=== PATIENT | female | born 1985 | race Caucasian/White ===

== ENCOUNTER 2019-03-20 09:23 | Inpatient (IN) | payer OTHER ==
[~2019-03-20] VITALS: Ht 157.5 cm; Wt 101.2 kg
[2019-03-20] MEDS ORDERED: morphine 4 MG/ML VIAL IV STA (09:59)
[2019-03-20] MEDS ORDERED: ONDANSETRON 4 MG INJ IV STA ×2 (09:59→12:40)
[2019-03-20] MEDS ORDERED: SOD CHLORIDE 0.9% 1,000 ML IV STA (09:59)
[2019-03-20] MEDS ORDERED: ACETAMINOPHEN 325 MG TAB PO PRN ×2 (12:30→15:00)
[2019-03-20] MEDS ORDERED: ONDANSETRON 4 MG INJ IV PRN (12:30)
[2019-03-20] MEDS ORDERED: HYDROmorphONE 1 MG/ML SYG IV STA (12:40)
--- NOTE | 2019-03-20 13:39 | ERD ---
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 The patient indicates for the past 48 hours the patient's been having a severe headache. She states that it is a bandlike headache. She was seen yesterday by her neur osurgeon Dr. Freeman. The patient was instructed to come to the emergency department for further evaluation as there was malfunctioning of the shunt. She had no fevers or shaking no chills. She denies any changes in vision. She is felt nauseous but has not experienced any emesis. She states the headache is 10 out of 10 in intensity. She also states she suffers from migraines but indicates this headache is different in nature from her previous migraine headaches. However she states this is not the worst headache of her life. She denies any neck pain. ROS All systems reviewed and are negative except as per history of present illness. Medications Home Meds No Active Prescriptions or Reported Meds Allergies Allergies: Coded Allergies: No Known Allergy (Unverified , 03/20/19) PMhx/Soc History of Surgery: Yes (HYSTERECTOMY, CLINICAL COUNSELOR SHUNT PLACEMENT) Hx Alcohol Use: No Hx Substance Use: No Hx Tobacco Use: No Smoking Status: Never smoker Physical Exam Vitals Vital Signs Date Temp Pulse Resp B/P (MAP) Pulse Ox O2 O2 Flow FiO2 Time Delivery Rate 03/20/19 90 18 123/79 98 Room Air 12:28 (94) 03/20/19 97.8 90 16 147/92 98 09:27 (110) Physical Exam Constitutional:Well-developed. Well-nourished. HEENT:Normocephalic. Atraumatic.Pupils were equal round reactive to light. Moist mucous membranes.No tonsillar exudates. Funduscopy exam shows sharp optic disks and venous pulsations are present with no papilledema. CLINICAL COUNSELOR shunt was palpable over the right parieto-occipital region. Neck: No nuchal rigidity. No lymphadenopathy. No posterior cervical spine tenderness or step-offs. Respiratory: Not using accessory muscles of respiration.Lungs were clear to auscultation bilaterally. No rhonchi. No rales. No wheezing. Cardiovascular: Regular rate regular rhythm.No murmurs. No rubs were appreciated.S1, S2 normal. Distal pulses are palpable 2+ bilaterally. GI: Abdomen was soft. Nontender. Non Distended. No pulsatile abdominal masses or bruits. No rebound. No guarding. Bowel sounds were present and normal. Muscle skeletal: Full range of motion of both the upper and lower extremities bilaterally.Normal muscle tone.No assymetrical calf tenderness or swelling. Skin: No petechia, no purpura. No lesions on the palms or the soles of the feet. No maculopapular rash. NEURO: Patient was alert, awake, orientated x3.No facial droop. Gait observed and normal with no ataxia.Speech had regular rate and rhythm. No focal neurological deficits. Result Diagram: 03/20/19 1005 03/20/19 1005 Results 24 hrs Laboratory Tests Test 03/20/19 10:05 White Blood Count 7.6 10^3/ul Red Blood Count 4.99 10^6/ul Hemoglobin 12.6 g/dl Hematocrit 40.2 % Mean Corpuscular Volume 80.6 fl Mean Corpuscular Hemoglobin 25.3 pg Mean Corpuscular Hemoglobin Concent 31.3 g/dl Red Cell Distribution Width 13.3 % Platelet Count 291 10^3/UL Mean Platelet Volume 9.5 fl Immature Granulocytes % 0.400 % Neutrophils % 71.2 % Lymphocytes % 19.1 % Monocytes % 6.0 % Eosinophils % 2.5 % Basophils % 0.8 % Nucleated Red Blood Cells % 0.0 /100WBC Immature Granulocytes # 0.030 10^3/ul Neutrophils # 5.4 10^3/ul Lymphocytes # 1.5 10^3/ul Monocytes # 0.5 10^3/ul Eosinophils # 0.2 10^3/ul Basophils # 0.1 10^3/ul Nucleated Red Blood Cells # 0.0 10^3/ul Prothrombin Time 12.8 Sec Prothrombin Time Ratio 1.0 INR International Normalized Ratio 0.95 Activated Partial Thromboplast Time 31.7 Sec Sodium Level 144 mmol/L Potassium Level 3.6 mmol/L Chloride Level 106 mmol/L Carbon Dioxide Level 25 mmol/L Anion Gap 13 Blood Urea Nitrogen 15 mg/dl Creatinine 0.71 mg/dl Est Glomerular Filtrat Rate mL/min > 60 mL/min Glucose Level 138 mg/dl Calcium Level 9.0 mg/dl Total Bilirubin 0.6 mg/dl Direct Bilirubin 0.00 mg/dl Indirect Bilirubin 0.6 mg/dl Aspartate Amino Transf (AST/SGOT) 23 IU/L Alanine Aminotransferase (ALT/SGPT) 18 IU/L Alkaline Phosphatase 91 IU/L Total Protein 7.5 g/dl Albumin 4.5 g/dl Globulin 3.00 g/dl Albumin/Globulin Ratio 1.50 Current Medications Medications Dose Sig/Negrita Start Time Status Last (Trade) Ordered Route PRN Stop Time Admin Dose Reason Admin Sodium 1,000 ml @ Q1H STAT 03/20/19 DC 03/20/19 Chloride 1,000 mls/hr IV 09:59 10:16 03/20/19 10:58 Morphine 4 mg ONCE STAT 03/20/19 DC 03/20/19 Sulfate IV 09:59 10:17 (morphine) 03/20/19 10:00 Ondansetron 4 mg ONCE STAT 03/20/19 DC 03/20/19 HCl (Zofran IV 09:59 10:17 Inj) 03/20/19 10:00 Ondansetron 4 mg BRIDGE ORDER 03/20/19 HCl (Zofran PRN IV 12:30 Inj) NAUSEA/VOMITI 03/21/19 12:29 NG 650 mg ER BRIDGE 03/20/19 Acetaminophen PRN PO 12:30 (Tylenol .MILD PAIN 03/21/19 12:29 Tab) 1-3 OR TEMP 1 mg ONCE STAT 03/20/19 DC 03/20/19 Hydromorphone IV 12:40 12:53 HCl 03/20/19 12:41 (Dilaudid) Ondansetron 4 mg ONCE STAT 03/20/19 DC 03/20/19 HCl (Zofran IV 12:40 12:52 Inj) 03/20/19 12:41 Procedures/MDM The patient presented to the emergency department with an acute single headache that presented within hours of onset my differential diagnosis included but was not limited to meningitis, SAH, intracerebral hemorrhage, hypertensive encephalopathy, cranial artery dissection, cerebral venous sinus thrombosis, traumatic, acute sinusitis. The patient has no ocular symptoms to suggest temporal neuritis, acute narrow-angle glaucoma or pituitary apoplexy. The patient did not appear to have a toxic or metabolic etiology such as fever, hypoglycemia, high-altitude disease or carbon monoxide poisoning. Given that the patient has a history of a shunt I did obtain a CT scan. This was reviewed by the radiologist and indicate the followin. No acute intracranial pathology identified. 2. Right transparietal ventricular shunt in place, without hydrocephalus. Small/slit-like lateral - third ventricles noted. The patient no severe electrolyte abnormalities. There is no leukocytosis or signs of infectious process. I spoke with her neurosurgeon who requested the patient be admitted to the hospitalist. He will be consulted on the case for further evaluation into malfunction of the patient's CLINICAL COUNSELOR shunt. Departure Diagnosis: Primary Impression: Obstructed CLINICAL COUNSELOR shunt Encounter type: initial encounter Qualified Codes: T85.09XA - Other m echanical complication of ventricular intracranial (communicating) shunt, initial encounter Condition: Serious YOSI SERRANO MD Mar 20, 2019 13:39
--- NOTE | 2019-03-20 14:54 | HP ---
Date/Time of Note Date/Time of Note DATE: 03/20/19 TIME: 14:37 Assessment/Plan VTE Prophylaxis SCD applied (from Nsg): Yes Pharmacological prophylaxis: NA/contraindicated Pharm contraindication: low risk/ambulating Lines/Catheters IV Catheter Type (from Nrsg): Saline Lock Assessment/Plan Assessment/Plan 33 yo woman with history of hydrocephalus presents with acute onset headache #Headache - May be HOGSHEAD MAT ASSEMBLER shunt malfunction with increased intracranial pressure - No concerning focal neuro signs - No red flags on CT head. - IV opioid analgesics until Dr. Freeman evaluates her. #Hydrocephalus - Probably idiopathic intracranial hypertension - s/p HOGSHEAD MAT ASSEMBLER shunt, outpatient followup with Dr. Freeman. DVT: SCDs GI: None Result Diagram: 03/20/19 1005 03/20/19 1005 HPI/ROS Admit Date/Time Admit Date/Time 20 March 2019 Hx of Present Illness Ms. Norman is a 33 yo woman with history of hydrocephalus with HOGSHEAD MAT ASSEMBLER shunt who presents with severe headache. She was in her usual state of health until Tuesday night, when she noticed an aching diffuse headache. But she was able to sleep through it. Tuesday morning the headache was much more severe. She had nausea but no vomiting; no vision changes or dizziness. She saw her neurosurgeon Dr. Fremean in his office who recommended she present to the emergency room for admission. She reports that in 2013 she had a lumbar puncture and was diagnosed with hydrocephalus (possibly IIH/pseudotumor cerebri?). She was managed medically until February 2017 when she had a HOGSHEAD MAT ASSEMBLER shunt placed by Dr. Freeman. She has had interm ittent problems with the shunt requiring revisions, she cannot remember the last time this happened. In the ED she was afebrile, vitals normal. Labs unremarkable. CT head showed the R ventricular shunt in position with no hydrocephalus. She got IV morphine and dilaudid with relief of pain. ROS She denies recent fever, chills, night sweats, weight loss, anorexia, vision christelle nges, dizziness, vertigo, sore throat, dysphagia, cough, dyspnea, chest pain/pressure/palpitations, vomiting, abdominal pain/distension, diarrhea, constipation, dysuria, urinary frequency, hematuria. PMH/Family/Social Past Medical History Hydrocephalus requiring HOGSHEAD MAT ASSEMBLER shunt Medications Current Medications Ondansetron HCl (Zofran Inj) 4 mg BRIDGE ORDER PRN IV NAUSEA/VOMITING; Start 6/25/19 at 12:30; Stop 03/21/19 at 12:29 Acetaminophen (Tylenol Tab) 650 mg ER BRIDGE PRN PO .MILD PAIN 1-3 OR TEMP; Start 03/20/19 at 12:30; Stop 03/21/19 at 12:29 Coded Allergies: No Known Allergy (Unverified , 03/20/19) Past Surgical History February 2017 HOGSHEAD MAT ASSEMBLER shunt placement Uterine leiomyoma removal Tuboligation Social History Alcohol Use: none Smoking Status: Never smoker Drug Use: none Exam/Review of Systems Vital Signs Vitals Vital Signs Date Temp Pulse Resp B/P (MAP) Pulse Ox O2 O2 Flow FiO2 Time Delivery Rate 03/20/19 90 18 123/79 98 Room Air 12:28 (94) 03/20/19 97.8 09:27 Exam Exam Gen: Obese woman supine in gurney, comfortable appearing in no distress. Eyes: PERRL, no icterus HEENT: VPH shunt palpable behind R ear. Nontender. Moist mucous membranes, clear oropharynx Neck: Supple, no lymphadenopathy Card: Regular rate and rhythm, no murmur Pulm: Clear to auscultation bilaterally Abd: Soft, nontender, nondistended. Ext: No cyanosis/clubbing/edema Skin: warm, dry, well perfused. SMITHA SARGENT MD Mar 20, 2019 14:48
[2019-03-20] MEDS ORDERED: NACL 0.9% 3 ML SYG IV SCH (15:00)
[2019-03-20 22:55] VITALS: BP 127/67; PULSE 75; RESP 19
[2019-03-20 23:07] VITALS: Ht 157.5 cm; Wt 101.2 kg
[2019-03-20] MEDS: HYDROmorphONE 2 MG/ML SYG IV PRN (23:38)
[2019-03-21 02:00] VITALS: BP 144/88; PULSE 73; RESP 18
[2019-03-21] MEDS: DIPHENHYDRAMINE 50 MG CAP PO PRN ×2 (02:30→20:11)
[2019-03-21 07:18] VITALS: BP 128/80; PULSE 84; RESP 16
[2019-03-21] MEDS: HYDROmorphONE 2 MG/ML SYG IV PRN ×3 (08:00→18:19)
[2019-03-21] MEDS: ONDANSETRON 4 MG INJ IV PRN ×3 (08:03→20:13)
--- NOTE | 2019-03-21 13:47 | PN ---
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 - IV opioid analgesics until Dr. Freeman evaluates her. #Hydrocephalus - Probably idiopathic intracranial hypertension - s/p SUPERINTENDENT GENERAL shunt, outpatient followup with Dr. Freeman. DVT: SCDs GI: None Result Diagram: 03/21/19 0555 03/21/19 0555 Subjective 24 Hr Interval Summary Free Text/Dictation No acute overnight events. Continues to have diffuse aching headache, not significantly improved or worsened since yesterday. Exam/Review of Systems Exam Vitals Vital Signs Date Temp Pulse Resp B/P (MAP) Pulse Ox O2 O2 Flow FiO2 Time Delivery Rate 03/21/19 97.6 84 16 128/80 95 Room Air 07:18 (96) Intake and Output 03/20/19 03/20/19 03/21/19 1515:00 23:00 07:00 IntakeIntake Total 320 ml BalanceBalance 320 ml Exam Gen: Morbidly obese woman supine in gurney, ice pack on head in some discomfort. Eyes: PERRL, no icterus HEENT: VPH shunt palpable behind R ear. Nontender. Moist mucous membranes, clear oropharynx Neck: Supple, no lymphadenopathy Card: Regular rate and rhythm, no murmur Pulm: Clear to auscultation bilaterally Abd: Soft, nontender, nondistended. Ext: No cyanosis/clubbing/edema Skin: warm, dry, well perfused. Results Results 24hrs Laboratory Tests Test 03/21/19 05:55 White Blood Count 7.2 Red Blood Count 4.78 Hemoglobin 12.0 Hematocrit 38.3 Mean Corpuscular Volume 80.1 L Mean Corpuscular Hemoglobin 25.1 L Mean Corpuscular Hemoglobin Concent 31.3 L Red Cell Distribution Width 13.2 Platelet Count 302 Mean Platelet Volume 9.9 Immature Granulocytes % 0.400 Neutrophils % 59.6 Lymphocytes % 27.0 Monocytes % 8.2 Eosinophils % 4.0 Basophils % 0.8 Nucleated Red Blood Cells % 0.0 Immature Granulocytes # 0.030 Neutrophils # 4.3 Lymphocytes # 1.9 Monocytes # 0.6 Eosinophils # 0.3 Basophils # 0.1 Nucleated Red Blood Cells # 0.0 Sodium Level 142 Potassium Level 4.2 Chloride Level 106 Carbon Dioxide Level 28 Anion Gap 8 Blood Urea Nitrogen 11 Creatinine 0.65 Est Glomerular Filtrat Rate mL/min > 60 Glucose Level 94 # Hemoglobin A1c 5.1 Calcium Level 8.8 Phosphorus Level 2.9 Magnesium Level 2.2 Total Bilirubin 0.6 Direct Bilirubin 0.00 Indirect Bilirubin 0.6 Aspartate Amino Transf (AST/SGOT) 27 Alanine Aminotransferase (ALT/SGPT) 14 Alkaline Phosphatase 86 Total Protein 7.3 Albumin 4.2 Globulin 3.10 Albumin/Globulin Ratio 1.35 Thyroid Stimulating Hormone (TSH) 1.120 Medications Medication Current Medications IV Flush (NS 3 ml) 3 ml PER PROTOCOL IV ; Start 03/20/19 at 15:00 Ondansetron HCl (Zofran Inj) 4 mg Q6H PRN IV NAUSEA/VOMITING Last administered on 03/21/19at 08:03; Admin Dose 4 MG; Start 03/20/19 at 15:00 Acetaminophen (Tylenol Tab) 650 mg Q6H PRN PO .PAIN 1-3 OR TEMP; Start 03/20/19 at 15:00 Hydromorphone HCl (Dilaudid) 2 mg Q4H PRN IV .SEVERE PAIN 7-10 Last administered on 03/21/19at 12:31; Admin Dose 2 MG; Start 03/20/19 at 15:00 Diphenhydramine HCl (Benadryl) 50 mg Q6H PRN PO ITCHING Last administered on 03/21/19at 02:30; Admin Dose 50 MG; Start 03/21/19 at 02:30 SMITHA SARGENT MD Mar 21, 2019 13:47
[2019-03-21 14:03] VITALS: BP 138/87; PULSE 71; RESP 16
[2019-03-21 20:00] VITALS: BP 132/81; PULSE 74; RESP 19
--- NOTE | 2019-03-21 21:22 | CONS ---
Assessment/Plan Assessment/Plan Assessment/Plan (Daily) Impression Right VPS placement with Revision both in 2017 Doing well last week but started to have overdrainage type HAs (worse with standing) Tuesday CT brain shows very small ventricles - pt likely over-draining right vps query with [employer] Programer. Initial setting 0.5 (max drainage) Plan VPS Query at bedside and VPS reprogrammed from 0.5 --> 1.5 (decrease drainage) Pt okay for dc and follow up at my office Tuesday for follow up and evaluation Consultation Date/Type/Reason Admit Date/Time 20 March 2019 Date/Time of Note DATE: 03/21/19 TIME: 21:14 Hx of Present Illness 33 y/o female well known to Neurosurgical team and recently evaluated at my office for increasing HAs, worse with standing and has relief when lying flat. During my office exam, pt's right vps reservoir was not pumping and advised to go to ED for CT brain to further evaluate ventricle size. pmh/psx: right vps placement with revision 2016 Past Medical History Home Meds No Active Prescriptions or Reported Meds Medications Current Medications IV Flush (NS 3 ml) 3 ml PER PROTOCOL IV ; Start 03/20/19 at 15:00 Ondansetron HCl (Zofran Inj) 4 mg Q6H PRN IV NAUSEA/VOMITING Last administered on 03/21/19at 20:13; Admin Dose 4 MG; Start 03/20/19 at 15:00 Acetaminophen (Tylenol Tab) 650 mg Q6H PRN PO .PAIN 1-3 OR TEMP Last administered on 03/21/19at 14:15; Admin Dose 650 MG; Start 03/20/19 at 15:00 Hydromorphone HCl (Dilaudid) 2 mg Q4H PRN IV .SEVERE PAIN 7-10 Last administered on 03/21/19at 18:19; Admin Dose 2 MG; Start 03/20/19 at 15:00 Diphenhydramine HCl (Benadryl) 50 mg Q6H PRN PO ITCHING Last administered on 03/21/19at 20:11; Admin Dose 50 MG; Start 03/21/19 at 02:30 Allergies: Coded Allergies: No Known Allergy (Unverified , 03/20/19) Social History Alcohol Use: none Smoking Status: Never smoker Drug Use: none Exam/Review of Systems Exam Vitals Vital Signs Date Temp Pulse Resp B/P (MAP) Pulse Ox O2 O2 Flow FiO2 Time Delivery Rate 03/21/19 98.2 74 19 132/81 96 20:00 (98) 03/21/19 Room Air 14:03 Intake and Output 03/20/19 03/20/19 03/21/19 1515:00 23:00 07:00 IntakeIntake Total 320 ml BalanceBalance 320 ml Constitutional: alert Head: normocephalic Eyes: EOMI, PERRL Neck: supple Respiratory: clear to auscultation Cardiovascular: regular rate and rhythm Neurological: other (MS: AAOX3 with fluent speech CN: III-XII M: FC x 4 , no focal def. Right VPS - pumps very slowly ) Results Result Diagram: 03/21/19 0555 03/21/19 0555 Results 24hrs Laboratory Tests Test 03/21/19 05:55 White Blood Count 7.2 Red Blood Count 4.78 Hemoglobin 12.0 Hematocrit 38.3 Mean Corpuscular Volume 80.1 L Mean Corpuscular Hemoglobin 25.1 L Mean Corpuscular Hemoglobin Concent 31.3 L Red Cell Distribution Width 13.2 Platelet Count 302 Mean Platelet Volume 9.9 Immature Granulocytes % 0.400 Neutrophils % 59.6 Lymphocytes % 27.0 Monocytes % 8.2 Eosinophils % 4.0 Basophils % 0.8 Nucleated Red Blood Cells % 0.0 Immature Granulocytes # 0.030 Neutrophils # 4.3 Lymphocytes # 1.9 Monocytes # 0.6 Eosinophils # 0.3 Basophils # 0.1 Nucleated Red Blood Cells # 0.0 Sodium Level 142 Potassium Level 4.2 Chloride Level 106 Carbon Dioxide Level 28 Anion Gap 8 Blood Urea Nitrogen 11 Creatinine 0.65 Est Glomerular Filtrat Rate mL/min > 60 Glucose Level 94 # Hemoglobin A1c 5.1 Calcium Level 8.8 Phosphorus Level 2.9 Magnesium Level 2.2 Total Bilirubin 0.6 Direct Bilirubin 0.00 Indirect Bilirubin 0.6 Aspartate Amino Transf (AST/SGOT) 27 Alanine Aminotransferase (ALT/SGPT) 14 Alkaline Phosphatase 86 Total Protein 7.3 Albumin 4.2 Globulin 3.10 Albumin/Globulin Ratio 1.35 Thyroid Stimulating Hormone (TSH) 1.120 Medications Medication Current Medications IV Flush (NS 3 ml) 3 ml PER PROTOCOL IV ; Start 03/20/19 at 15:00 Ondansetron HCl (Zofran Inj) 4 mg Q6H PRN IV NAUSEA/VOMITING Last administered on 03/21/19 20:13; Admin Dose 4 MG; Start 03/20/19 at 15:00 Acetaminophen (Tylenol Tab) 650 mg Q6H PRN PO .PAIN 1-3 OR TEMP Last administered on 03/21/19 14:15; Admin Dose 650 MG; Start 03/20/19 at 15:00 Hydromorphone HCl (Dilaudid) 2 mg Q4H PRN IV .SEVERE PAIN 7-10 Last administered on 03/21/19 18:19; Admin Dose 2 MG; Start 03/20/19 at 15:00 Diphenhydramine HCl (Benadryl) 50 mg Q6H PRN PO ITCHING Last administered on 03/21/19 20:11; Admin Dose 50 MG; Start 03/21/19 at 02:30 EMILY NASH MD Mar 21, 2019 21:22
[2019-03-22 02:00] VITALS: BP 118/75; PULSE 70; RESP 19
[2019-03-22 08:04] VITALS: BP 122/75; PULSE 72; RESP 18
--- NOTE | 2019-03-22 09:56 | PDOCDIS ---
Discharge Instructions DIAGNOSIS Discharge Diagnosis FINANCIAL PROJECT MANAGER shunt malfunction (overdrainage) CONDITION [id number] Patient Condition: [id number] Good HOME CARE INSTRUCTIONS: [id number] Diet Instructions: [id number] Regular ACTIVITY: [id number] Activity Restrictions: [id number] No Restrictions FOLLOW UP/APPOINTMENTS Follow-up Plan 1. For headache, continue to use cold packs as needed. Take [id number] ibuprofen 800mg every 4 hours as needed; also acetaminophen (tylenol) 650mg every 6 hours as needed. 2. For severe pain that does not respond to the above, return to the emergency room. 3. See Dr. Freeman in his office as scheduled on Tuesday. SMITHA SARGENT MD Mar 22, 2019 09:56
[2019-03-22] MEDS: HYDROmorphONE 2 MG/ML SYG IV PRN (10:44)
[2019-03-22] MEDS: ONDANSETRON 4 MG INJ IV PRN (10:45)
--- NOTE | 2019-03-22 16:52 | DS ---
Date/Time of Note Date/Time of Note DATE: 03/22/19 TIME: 16:48 Discharge Summary Admission/Discharge Info Admit Date/Time Mar 20, 2019 at 21:04 Discharge Date/Time Mar 22, 2019 at 13:15 Discharge Diagnosis GLASS PRODUCTS INSPECTOR shunt malfunction (overdrainage) Patient Condition: Good Consults Dr. Freeman, neurosurgery Hx of Present Illness Ms. Norman is a 33 yo woman with history of hydrocephalus with GLASS PRODUCTS INSPECTOR shunt who presents with severe headache. She was in her usual state of health until Tuesday night, when she noticed an aching diffuse headache. But she was able to sleep through it. Tuesday morning the headache was much more severe. She had nausea but no vomiting; no vision changes or dizziness. She saw her neurosurgeon Dr. Freeman in his office who recommended she present to the emergency room for admission. She reports that in 2013 she had a lumbar puncture and was diagnosed with hydrocephalus (possibly IIH/pseudotumor cerebri?). She was managed medically until February 2017 when she had a GLASS PRODUCTS INSPECTOR shunt placed by Dr. Freeman. She has had intermittent problems with the shunt requiring revisions, she cannot remember the last time this happened. In the ED she was afebrile, vitals normal. Labs unremarkable. CT head showed the R ventricular shunt in position with no hydrocephalus. She got IV morphine and dilaudid with relief of pain. Hospital Course She was started on opioid analgesics and admitted to med/surg. She was seen by Dr. Freeman who determined that her VPH shunt was probably draining too quickly, as her headaches worsen with standing. She was on the maximum drainage level (0.5) so it was decreased to 1.5. Monitored overnight after this change with very mild improvement in symptoms. Discharged with acetaminophen and ibuprofen to see Dr. Freeman in the office on Tuesday. Home Meds No Active Prescriptions or Reported Meds Follow-up Plan 1. For headache, continue to use cold packs as needed. Take [id number] ibuprofen 800mg every 4 hours as needed; also acetaminophen (tylenol) 650mg every 6 hours as needed. 2. For severe pain that does not respond to the above, return to the emergency room. 3. See Dr. Freeman in his office as scheduled on Tuesday. Primary Care Provider Care Physician No Primary Time spent on discharge: > 30 minutes SMITHA SARGENT MD Mar 22, 2019 16:52
== END 2019-03-22 13:15 | disposition home or self-care (01) | DRG 92 ==
LOC: E/R 09:23 → PP2 12:07 → SUATTDRO 14:04 → OBSVTOIN 21:04
PROVIDERS: ADMIT Internal Medicine; ATTEND Internal Medicine
DX: T85.09XA Other mechanical complication of ventricular intracranial (communicating) shunt, initial encounter (principal); G91.9 Hydrocephalus, unspecified; Y83.9 Surgical procedure, unspecified as the cause of abnormal reaction of the patient, or of later complication, without mention of misadventure at the time of the procedure; Y92.9 Unspecified place or not applicable
CPT/HCPCS: 70450; 80053; 83036; 83735; 84100; 84443; 85025; 85610; 85730; 96374; 96375; G0378; J1170; J2270; J2405; J7030